=== PATIENT | male | born 1990 | race African-American/Black ===

== ENCOUNTER 2017-09-26 20:10 | Emergency (ER) | payer SELFPAY ==
[~2017-09-26 20:10] MED LIST: INSULANPEN; METF500 PO
[2017-09-27] MEDS ORDERED: Ultram50 MG PO (06:25)
== END 2017-09-26 22:27 | disposition left against medical advice (07) ==
LOC: ER 20:10
DX: Z53.21 Procedure and treatment not carried out due to patient leaving prior to being seen by health care provider (principal)

== ENCOUNTER 2017-10-20 23:15 | Emergency (ER) | payer OTHER ==
[~2017-10-20] VITALS: Ht 182.9 cm; Wt 66.2 kg
[~2017-10-20 23:15] MED LIST changes: +Ultram50 MG PO
[2017-10-21] MEDS ORDERED: IBUP600 PO (00:59)
== END 2017-10-21 01:24 | disposition home or self-care (01) ==
LOC: ER 23:15
DX: M20.011 Mallet finger of right finger(s) (principal); Z79.4 Long term (current) use of insulin; E11.9 Type 2 diabetes mellitus without complications; J45.909 Unspecified asthma, uncomplicated; F17.210 Nicotine dependence, cigarettes, uncomplicated
CPT/HCPCS: 29130; 73130; 99283